=== PATIENT | male | born 1975 | race Caucasian/White ===

== ENCOUNTER 2018-11-17 15:33 | Inpatient (IN) | payer BC ==
[~2018-11-17] VITALS: Ht 177.8 cm; Wt 115.4 kg
[2018-11-17 16:40] VITALS: BP 131/92
--- NOTE | 2018-11-17 17:10 | NUR ---
The patient, BIENVENIDO MULLER, 43 y/o, M admitted by WILDER DUMONT MD, was given written information regarding hospital policies, unit procedures and contact persons. Valuables were checked.
[2018-11-17] MEDS ORDERED: ACET325T9 PO (17:25)
[2018-11-17] MEDS ORDERED: ASPI325T8 PO (17:25)
[2018-11-17] MEDS ORDERED: MAG355OR11 PO (17:25)
[2018-11-17] MEDS ORDERED: PANT20TA2 PO (17:26)
[2018-11-17] MEDS ORDERED: ATOR10TA60 PO (17:26)
[2018-11-17] MEDS ORDERED: ACETAMINOPHEN 325 MG TABLET. PO PRN (18:00)
[2018-11-17] MEDS ORDERED: ASPIRIN 325 MG TABLET PO ONE (18:00)
[2018-11-17] MEDS ORDERED: MAG HYDROX/ALUMINUM HYD/SIMETH 30 ML ORAL.SUSP PO PRN (18:00)
[2018-11-17 18:04] LABS: BASO # 0.1 x10^3/uL (0.0-0.2); BASO % 1 % (0-3); EOS # 0.2 x10^3/uL (0.0-0.7); EOS % 3 % (0-3); HEMATOCRIT 47.4 % (39.0-53.0); HEMOGLOBIN 15.8 g/dL (13.0-17.5); LYMPH # 2.5 x10^3/uL (1.0-4.8); LYMPH % 32 % (24-48); MEAN CORPUSCULAR HEMOGLOBIN 29 pg (25-35); MEAN CORPUSCULAR HGB CONC 33 g/dL (31-37); MEAN CORPUSCULAR VOLUME 88 fL (79-100); MONO # 0.4 x10^3/uL (0.0-1.1); MONO % 5 % (0-9); NEUT # 4.6 x10^3uL (1.8-7.7); NEUT % 59 % (31-73); PLATELET COUNT 254 x10^3/uL (140-400); RED CELL DISTRIBUTION WIDTH 13.2 % (11.5-14.5); WHITE BLOOD COUNT 7.9 x10^3/uL (4.0-11.0)
[2018-11-17 18:19] LABS: ALBUMIN 3.9 g/dL (3.4-5.0); ALBUMIN/GLOBULIN RATIO 1.2 (1.0-1.7); CALCIUM 8.7 mg/dL (8.5-10.1); GFR 81.6; POTASSIUM 3.9 mmol/L (3.5-5.1); TOTAL BILIRUBIN 0.5 mg/dL (0.2-1.0); TOTAL PROTEIN 7.2 g/dL (6.4-8.2)
[2018-11-17 19:25] VITALS: BP 126/73
[2018-11-17] MEDS ORDERED: ATORVASTATIN CALCIUM 10 MG TABLET. PO SCH (21:00)
[2018-11-17 23:00] VITALS: BP 113/69
[2018-11-18 03:00] VITALS: BP 121/70
[2018-11-18 04:44] LABS: CHOLESTEROL/HDL RATIO 3.8
[2018-11-18] MEDS ORDERED: PANTOPRAZOLE 40 MG TABLET.DR. PO SCH (07:30)
[2018-11-18 07:42] VITALS: BP 122/92
[2018-11-18] MEDS ORDERED: ASPIRIN 325 MG TABLET PO SCH (09:00)
--- NOTE | 2018-11-18 09:20 | PDOC2 ---
JESSICA IGNACIO MEDICAL RADIATION TECH 11/18/18 0920: CARDIAC CONSULT DATE OF CONSULT Date of Consult DATE: 11/18/18 TIME: 09:01 REASON FOR CONSULT Reason for Consult: Chest pain REFERRING PHYSICIAN Referring Physician: Ileana SOURCE Source: Chart review, Patient HISTORY OF PRESENT ILLNESS HISTORY OF PRESENT ILLNESS This is a pleasant 43 yo male admitted for complains of chest pain. 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 These requires a lot of left shoulder ROM and he is also left handed. No recent falls or injury or MVA. Denies any nausea, jaw tightness but positive for left chest pressure which is not reproducible with palpation and ROM. He still has that pressure but nonradiating and tolerable. He also has been having intermittent cool sensation to his left arm. He takes statin and also protonix. He thought it was just heartburn. His symptoms started 2 days ago and finally yesterday he was told to go to ED. Denies any past, VTE, CAD, or arrhythmias. No dizziy spells and no recent infection. Denies any routine NSAIDs. Denies any recreational drug use. No known shoulder and neck problems. Again no nausea or SOA. No exertional CP nor LI. PAST MEDICAL HISTORY Cardiovascular: Hyperlipidemia Pulmonary: No pertinent hx CENTRAL NERVOUS SYSTEM: Other (No pertinent history) GI: GERD Heme/Onc: No pertinent hx Hepatobiliary: No pertinent hx Psych: No pertinent hx Musculoskeletal: Osteoarthritis Rheumatologic: No pertinent hx Infectious disease: No pertinent hx ENT: No pertinent hx Renal/: No pertinent hx Endocrine: No pertinent hx Dermatology: No pertinent hx PAST SURGICAL HISTORY Past Surgical History right wrist laceration repair FAMILY HISTORY Family History: Heart Disease (father) SOCIAL HISTORY Smoke: No ALCOHOL: none Drugs: None Lives: with Family CURRENT MEDICATIONS CURRENT MEDICATIONS Current Medications Medications (Trade) Dose Ordered Sig/Edu Route PRN Reason Start Time Stop Time Status Last Admin Dose Admin Al Hydroxide/Mg Hydroxide (Mylanta Plus Xs) 30 ml PRN Q4HRS PRN PO HEARTBURN / GAS 11/17/18 18:00 11/17/18 19:46 Pantoprazole Sodium (Protonix) 40 mg DAILYAC PO 11/18/18 07:30 11/18/18 08:57 Aspirin (Paola Aspirin) 325 mg 1X ONCE PO 11/17/18 18:00 5/20/19 18:01 DC 11/17/18 18:28 ALLERGIES ALLERGIES: Coded Allergies: No Known Drug Allergies (Unverified , 11/17/14) ROS Review of System 14 point ROS evaluated with pertinent positives noted per HPI PHYSICAL EXAM General: Alert, Oriented X3, Cooperative, No acute distress HEENT: Atraumatic, Mucous membr. moist/pink Lungs: Clear to auscultation, Normal air movement Heart: Regular rate (SR), Normal S1, Normal S2, No murmurs Abdomen: Soft, No tenderness Extremities: No cyanosis, No edema Skin: No breakdown, No significant lesion Neuro: Normal speech, Sensation intact Psych/Mental Status: Mental status NL, Mood NL MUSCULOSKELETAL: Osteoarthritic changes both hands VITALS VITALS Vital Signs Date Time Temp Pulse Resp B/P (MAP) Pulse Ox O2 Delivery O2 Flow Rate FiO2 11/18/18 07:42 98.0 87 18 122/92 (102) 96 Room Air 98.0 LABS Lab: Laboratory Tests Test 11/17/18 18:00 11/17/18 22:15 11/18/18 02:55 White Blood Count 7.9 x10^3/uL (4.0-11.0) Red Blood Count 5.40 x10^6/uL (4.30-5.70) Hemoglobin 15.8 g/dL (13.0-17.5) Hematocrit 47.4 % (39.0-53.0) Mean Corpuscular Volume 88 fL (79-100) Mean Corpuscular Hemoglobin 29 pg (25-35) Mean Corpuscular Hemoglobin Concent 33 g/dL (31-37) Red Cell Distribution Width 13.2 % (11.5-14.5) Platelet Count 254 x10^3/uL (140-400) Neutrophils (%) (Auto) 59 % (31-73) Lymphocytes (%) (Auto) 32 % (24-48) Monocytes (%) (Auto) 5 % (0-9) Eosinophils (%) (Auto) 3 % (0-3) Basophils (%) (Auto) 1 % (0-3) Neutrophils # (Auto) 4.6 x10^3uL (1.8-7.7) Lymphocytes # (Auto) 2.5 x10^3/uL (1.0-4.8) Monocytes # (Auto) 0.4 x10^3/uL (0.0-1.1) Eosinophils # (Auto) 0.2 x10^3/uL (0.0-0.7) Basophils # (Auto) 0.1 x10^3/uL (0.0-0.2) Sodium Level 138 mmol/L (136-145) Potassium Level 3.9 mmol/L (3.5-5.1) Chloride Level 102 mmol/L (98-107) Carbon Dioxide Level 26 mmol/L (21-32) Anion Gap 10 (6-14) Blood Urea Nitrogen 16 mg/dL (8-26) Creatinine 1.0 mg/dL (0.7-1.3) Estimated GFR (Cockcroft-Gault) 81.6 BUN/Creatinine Ratio 16 (6-20) Glucose Level 86 mg/dL (70-99) Calcium Level 8.7 mg/dL (8.5-10.1) Total Bilirubin 0.5 mg/dL (0.2-1.0) Aspartate Amino Transf (AST/SGOT) 13 U/L (15-37) Alanine Aminotransferase (ALT/SGPT) 27 U/L (16-63) Alkaline Phosphatase 97 U/L (46-116) Troponin I Quantitative < 0.017 ng/mL (0.000-0.055) < 0.017 ng/mL (0.000-0.055) < 0.017 ng/mL (0.000-0.055) Total Protein 7.2 g/dL (6.4-8.2) Albumin 3.9 g/dL (3.4-5.0) Albumin/Globulin Ratio 1.2 (1.0-1.7) Triglycerides Level 75 mg/dL (0-150) Cholesterol Level 179 mg/dL (0-200) LDL Cholesterol, Calculated 117 mg/dL (0-100) VLDL Cholesterol, Calculated 15 mg/dL (0-40) Non-HDL Cholesterol Calculated 132 mg/dL (0-129) HDL Cholesterol 47 mg/dL (40-60) Cholesterol/HDL Ratio 3.8 ASSESSMENT/PLAN ASSESSMENT/PLAN 1. Chest pain: possibly MSK . trops nml, EKG SR without acute ST-T wave changes 2. HLP: not on goal with statin 3. Obesity 4. GERD Recommendations 1. Continue with home PPI and optimize home statin 2. TTE today and TSH and Mg 3. Lifestyle modifications, wt loss. consult dietitian 4. MPI pending today. YANCY POTTS MD 11/18/182103: CARDIAC CONSULT ASSESSMENT/PLAN ASSESSMENT/PLAN Patient seen and examined. Agree with PSYCHIATRIC AIDE INSTRUCTOR's assessment and plan. CP with atypical features and most probably musculoskeletal IN ruled out 2D echo showed normal LVF and nuclear stress test did not show any ischemia Thank you for your consultation JESSICA IGNACIO APRN November 18, 2018 09:20 YANCY POTTS MD November 18, 2018 21:04
--- NOTE | 2018-11-18 09:47 | EKG ---
[facility] [address] [place] [address] Test Date: 2018-11-17 Test Time: 18:09:29 Pat Name: BIENVENIDO MULLER Department: Room: [facility] Gender: M Chief Diversity Officer: : 1975 Requested By: WILDER DUMONT Order Number: [id number] Reading MD: Measurements Intervals [place] Rate: 68 P: 38 OR: 212 QRS: 16 QRSD: 92 T: 11 QT: 374 QTc: 402 Interpretive Statements SINUS RHYTHM QRS(T) CONTOUR ABNORMALITY CONSIDER ANTEROSEPTAL MYOCARDIAL DAMAGE POSSIBLY ABNORMAL ECG RI6.01 No previous ECG available for comparison
--- NOTE | 2018-11-18 09:50 | RAD ---
Single view chest dated 11/17/2018. No comparison available. Clinical data indication: Chest pain. FINDINGS: Single upright portable exam performed. Heart and mediastinal contours are within normal limits. Lungs are clear without focal consolidation. Vascular interstitium within normal limits. No pleural effusion or pneumothorax. IMPRESSION: No acute radiographic abnormality. Electronically signed by: Sathish Garcia MD (11/17/2018 9:25 PM) [facility]
--- NOTE | 2018-11-18 10:25 | PDOC ---
Provider Note Provider Note history and physical dictated # [id number] WILDER DUMONT MD November 18, 2018 10:25
[2018-11-18 10:52] VITALS: BP 148/66
--- NOTE | 2018-11-18 10:59 | HP ---
ADMIT DATE: 11/18/2018 LOCATION: He is in room 250. 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 He denied any trauma. There has been no nausea or vomiting. He does not have any previous history of coronary artery disease that is known. He does not smoke or have a family history of coronary artery disease. The patient also notes a cool sensation in the left shoulder and upper arm and left lateral portion of the chest, which is intermittent. He does take atorvastatin and Protonix. The patient was seen in the office. His EKG showed no acute change, but with the intermittent chest pressure, which he noted all day yesterday, he was subsequently admitted to the hospital for further evaluation of his chest pressure. ALLERGIES AND INTOLERANCES: None. MEDICATIONS: Include atorvastatin 10 mg at bedtime and Protonix 40 mg every day. PAST MEDICAL HISTORY: Past history is significant for hyperlipidemia and gastroesophageal reflux disease. He had a right wrist laceration repaired. SOCIAL HISTORY: He does not drink alcohol nor does he smoke cigarettes. 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 FAMILY HISTORY: Noncontributory. REVIEW OF SYSTEMS: GENERAL: There has been no fever, chills or sweats. CARDIOVASCULAR: He does have chest pressure. PULMONARY: No cough or shortness of breath. GASTROINTESTINAL: He is having some acid reflux, had some heartburn yesterday after admission. ENDOCRINE: No diabetes mellitus. SKIN: No rashes. Rest of the systems reviewed are negative, except as stated in the history of present illness. PHYSICAL EXAMINATION: VITAL SIGNS: Temperature is 98 degrees; apical pulse 87 and regular; respiratory rate 18; blood pressure 122/92, was 121/70 and oxygen saturation 96% on room air. HEENT: Eyes, gaze is conjugate. Mouth, tongue is midline. NECK: There is no cervical lymphadenopathy or thyroid enlargement. HEART: Reveals an S1, S2. There is no S3 or murmur. LUNGS: Clear. CHEST: Nontender. ABDOMEN: Soft, obese. EXTREMITIES: Lower extremities without edema. SKIN: No rashes. LABORATORY DATA: White count 7.9, hemoglobin 15.8, platelet count 254,000, polys 59 and lymphocytes 32. His serum sodium is 138, potassium 3.9, chloride 102, total CO2 of 26, BUN 16, creatinine 1.0 and his blood sugar was 86. His albumin was 3.9. Liver function tests were normal. Troponin levels negative x 3. His total cholesterol was 179, LDL cholesterol 117, HDL was 47 and the triglycerides were 75. TSH level is normal at 1.85. Magnesium 2.2. His chest x-ray showed no acute abnormality. Lungs were clear. Heart size was normal. He had an electrocardiogram which normal sinus rhythm and was normal. ASSESSMENT: 1. Chest pressure. He does have risk factors for coronary artery disease in terms of hyperlipidemia. Myocardial infarction was ruled out with negative troponin levels x 3. 2. Gastroesophageal reflux disease and he had some heartburn yesterday. 3. Hyperlipidemia. PLAN: Plan at this time is the patient was seen by the needle bar molder. An echocardiogram has been ordered and he is sent down getting ready to start his cardiac stress test. We will continue atorvastatin. He was started on aspirin. We will continue Protonix and p.r.n. antacids. If he passes the stress test, we will probably dismiss him later today. He certainly needs to lose weight and adhere to more of a plant-based type diet. WILDER DUMONT MD DR: MARIAN/shad JOB#: [id number] / [id number]
--- NOTE | 2018-11-18 12:06 | NUR ---
SS following for discharge planning. SS reviewed pt chart. Pt is from home with spouse and is currently on room air. No discharge needs noted at this time. SS will continue to follow for discharge planning.
--- NOTE | 2018-11-18 12:36 | RAD ---
MR#: [id number] Date of Study: 11/18/2018 Ordering Physician: WILDER DUMONT, Referring Physician: CARISSA GRAYSON Tech: RT Casimiro (R) (N) APPROVED REPORT Test Type: Exercise Stress Nurse/Tech: Dayan GOETZ Test Indications: CP Cardiac History: See EMR Medications: See EMR Medical History: See EMR Resting ECG: SR Resting Heart Rate: 75 bpm Resting Blood Pressure: 138/92mmHg Pretest Chest Pain: No chest pain Nurse/Tech Notes Lungs CTA; Heart tones regular. Consent: The procedure was explained to the patient in lay terms. Informed consent was witnessed. Fredy eout was entered into [employer]. History and Stress Test performed by RT Pablo (R) (N) Stress Symptoms No chest pain or symptoms. POST EXERCISE Reason for Termination: Reached target heart rate Target HR: Yes Max HR: 156 bpm 104% of Maximum Predicted HR: 150 bpm Exercise duration: 9:05 min:sec, 4 Stage Exercise capacity: 13.4METs Max Blood Pressure: 168/72mmHg Blood Pressure response to exercise: Normal blood pressure response during stress. Heart Rate response to exercise: WNL Chest Pain: No. Arrhythmia: No. ST Change: No. INTERPRETATION Stress EKG Conclusion: Baseline EKG showed sinus rhythm. No ischemic changes at peak stress. No arr hythmias. Imaging Protocol IMAGE PROTOCOL: Rest Tc-99m/stress Tc-99m 1 day Rest: Stress: Viability: Radiopharm.Tc99m FnxfkrruyRf42x Sestamibi Swaw63hPd 33mCi Duration 15min. 15min. Img Date 11/18/2018 11/18/2018 Inj-Img Swum11srs. 60min. Rest Admin Site:IV - Left HandAdministrator: Stress Admin Site: IV - Left HandAdministrator: STRESS DATA End Diast. Vol.78.0mlLVEDV index BSA34.0ml End Syst. Vol.19.0mlLVESV index BSA8.0ml Myocardial Lzzw930.0gEject. Zmpaksyn47.0% Stress Scores Regional WT0.00Summed WT5.00 Regional WM0.00Summed WM0.00 Study quality was good. Left Ventricular size was Normal at Rest and Stress. Lung uptake was . Left Ventricular ejection fraction is 76%. The rest and stress images show normal perfusion, normal contraction and thickening. LV Perf. Quant 17 Seg. SSS0.00 17 Seg. SRS2.00 17 Seg. SDS0.00 Stress Defect Extent (% LAD)0.00Rest Defect Extent (% LAD)0.00Rev. Defect Extent (% LAD)0.00 Stress Defect Extent (% LCX) 0.00Rest Defect Extent (% LCX)18.80Rev. Defect Extent (% LCX)0.00 Stress Defect Extent (% RCA)0.00Rest Defect Extent (% RCA)0.00Rev. Defect Extent (% RCA)0.00 Stress Defect Extent (% MELISSA)0.00Rest Defect Extent (% MELISSA)3.50Rev. Defect Extent (% MELISSA)0.00 Conclusion 1. Treadmill exercise cardioisotope stress test did not show any evidence of ischemia or infarct. 2. Normal left ventricular systolic function with ejection fraction calculated at 76%. 3. Low risk for cardiac events. Signed by : Robert Garcia, Electronically Approved : 11/18/2018 12:35:45
[2018-11-18 14:47] VITALS: BP 132/63
--- NOTE | 2018-11-18 15:12 | CARD ---
MR#: [id number] Date of Study: 11/18/2018 Ordering Physician: JESSICA IGNACIO, Referring Physician: WILDER DUMONT Tech: Eduarda Ricardo RDCS APPROVED REPORT EXAM: Two-dimensional and M-mode echocardiogram with Doppler and color Doppler. Other Information Quality : Good INDICATION Chest Pain 2D DIMENSIONS RVDd2.1 (2.9-3.5cm)Left Atrium(2D)3.7 (1.6-4.0cm) IVSd1.0 (0.7-1.1cm)Aortic Root(2D)3.3 (2.0-3.7cm) LVDd3.9 (3.9-5.9cm)LVOT Diameter2.4 (1.8-2.4cm) PWd0.9 (0.7-1.1cm)LVDs2.7 (2.5-4.0cm) FS (%) 30.5 %SV39.7 ml LVEF(%)58.6 (>50%) Aortic Valve AoV Peak Luther.123.9cm/sAoV VTI19.3cm AO Peak GR.6.1mmHgLVOT Peak Luther.99.6cm/s AO Mean GR.3mmHgAVA (VMAX)3.66cm2 UBALDO (VTI)4.50cm2 Mitral Valve MV E Baklvceo26.5cm/sMV DECEL BRYU029ah MV A Yibexigc27.5cm/sE/A Ratio1.0 Pulmonary Vein S1 Mrxhfwlw01.7cm/sD2 Crxtxqbs98.3cm/s LEFT VENTRICLE The left ventricle is normal size. There is normal left ventricular wall thickness. The left ventricu lar systolic function is normal. The Ejection Fraction is 55-60%. There is normal LV segmental wall m otion. RIGHT VENTRICLE The right ventricle is normal size. The right ventricular systolic function is normal. ATRIA The left atrium size is normal. The right atrium size is normal. The interatrial septum is intact wit h no evidence for an atrial septal defect or patent foramen ovale as noted on 2-D or Doppler imaging. AORTIC VALVE The aortic valve is normal in structure and function. Doppler and Color Flow revealed no significant aortic regurgitation. There is no significant aortic valvular stenosis. MITRAL VALVE The mitral valve is normal in structure and function. There is no evidence of mitral valve prolapse. There is no mitral valve stenosis. Doppler and Color Flow revealed no mitral valve regurgitation note d. TRICUSPID VALVE The tricuspid valve is normal in structure and function. Doppler and Color Flow revealed trace tricus pid valve regurgitation. There is no tricuspid valve stenosis. PULMONIC VALVE The pulmonic valve is not well visualized. Doppler and Color Flow revealed no pulmonic valvular regur gitation. There is no pulmonic valvular stenosis. GREAT VESSELS The aortic root is normal in size. The ascending aorta is normal in size. The IVC is normal in size a nd collapses >50% with inspiration. PERICARDIAL EFFUSION There is no evidence of significant pericardial effusion. Critical Notification Critical Value: No <Conclusion> The left ventricular systolic function is normal. The Ejection Fraction is 55-60%. There is normal LV segmental wall motion. Doppler and Color Flow revealed trace tricuspid valve regurgitation. There is no evidence of significant pericardial effusion. Signed by : Robert Garcia, Electronically Approved : 11/18/2018 15:12:38
--- NOTE | 2018-11-18 16:04 | DISCH ---
DISCHARGE INSTRUCTIONS Condition on Discharge Condition on Discharge: Stable Activity After Discharge Activity Instructions for Disc: Resume previous activity Diet after Discharge Diet after Discharge: Regular Contacting the DRSoumya after DC Call your doctor for: If your condition worsens Follow-Up Follow up with: dr. dumont next week in office. call for appt WILDER DUMONT MD November 18, 2018 16:04
--- NOTE | 2018-11-18 16:09 | PDOC ---
Provider Note Provider Note discharge summary dictated # [id number] WILDER DUMONT MD November 18, 2018 16:09
--- NOTE | 2018-11-18 16:40 | NUR ---
DISCHARGE INSTRUCTIONS GIVEN. PIV AND MONITOR OFF. ESCORTED PATIENT TO FRONT ENTRANCE PER PATIENT AMBULATION INTO A PRIVATE VEHICLE.
--- NOTE | 2018-11-18 20:06 | DS ---
DATE OF DISCHARGE: 11/18/2018 CONSULT: Industrial Hygiene Technician. FINAL DIAGNOSES: 1. Chest pressure, most likely secondary to esophageal spasm and gastroesophageal reflux disease. 2. Gastroesophageal reflux disease. 3. Hyperlipidemia. HOSPITAL COURSE: The patient is a 43-year-old white male with a history of hyperlipidemia and gastroesophageal reflux disease. 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 He denied any trauma, nausea or vomiting and does not have any previous history of known coronary artery disease. He does not smoke cigarettes and he does not have a family history of coronary artery disease. He noted a cool sensation in the left lateral chest and also in the left upper arm. The patient was seen in the office and EKG showed no acute change, subsequently admitted to the hospital for further evaluation and treatment of intermittent chest pressure all day. His cardiac enzymes were negative x 3. He was seen by the clinical trial educator nurse practitioner, clinical trial educator and underwent an echocardiogram, which showed a preserved left ventricular ejection fraction and also underwent a myocardial perfusion imaging stress test, which was normal. In addition, his cardiac enzymes were negative and he also had a chest x-ray that was unremarkable. EKG showed no acute abnormality. It is felt that the chest pressure was most likely secondary to esophageal spasm and gastroesophageal reflux disease. DISCHARGE MEDICATIONS: He will be dismissed to home on atorvastatin 10 mg at bedtime, Protonix 40 mg every day and Maalox 30 mL every four hours. DISCHARGE INSTRUCTIONS: He was told to make an appointment to see Dr. Tejeda in the office next week. WILDER TEJEDA MD DR: MARIAN/shad JOB#: [id number] / [id number]
== END 2018-11-18 16:31 | disposition home or self-care (01) | DRG 392 ==
LOC: 2 SOUTH 16:20
PROVIDERS: ADMIT Internal Medicine; ATTEND Internal Medicine
DX: K21.9 Gastro-esophageal reflux disease without esophagitis (principal); K22.4 Dyskinesia of esophagus; Z82.49 Family history of ischemic heart disease and other diseases of the circulatory system; E78.5 Hyperlipidemia, unspecified; E66.9 Obesity, unspecified; M19.90 Unspecified osteoarthritis, unspecified site; R07.89 Other chest pain; Z79.899 Other long term (current) drug therapy; Z68.36 Body mass index [BMI] 36.0-36.9, adult
CPT/HCPCS: 36415; 71045; 78452; 80053; 80061; 83735; 84443; 84484; 85025; 93005; 93017; 93306; 96376; A9500